=== PATIENT | female | born 1980 | race Caucasian/White ===

== ENCOUNTER → 2016-06-06 | Outpatient (CLI) | payer OTHER ==
[~2016-06-06] VITALS: Ht 156.2 cm; Wt 84.4 kg
[~2016-06-06] MED LIST: ADIPEX-P37.5 M1 PO; ANIMAL CHEWS1 EACH PO; BUPROPION XL300 MG PO; DOCUSATE SODIU100 MG PO; FLORINEF ACETA0.1 MG PO; GUMMY SWIRLS1 EACH PO; MILK OF MAGN PO; PROZAC10 MG PO; ULTRAM50 MG PO; VITAMIN D32000 UNI1 PO
== END | disposition home or self-care (01) ==
LOC: AMB 05-26 14:00
PROC: 0DBK8ZX Excision of Ascending Colon, Via Natural or Artificial Opening Endoscopic, Diagnostic (ICD-10-PCS; principal; 2016-06-06)
DX: D12.2 Benign neoplasm of ascending colon (principal); K64.8 Other hemorrhoids; R10.9 Unspecified abdominal pain; K62.89 Other specified diseases of anus and rectum; K62.5 Hemorrhage of anus and rectum; Z86.69 Personal history of other diseases of the nervous system and sense organs; Z88.5 Allergy status to narcotic agent; Z87.891 Personal history of nicotine dependence
CPT/HCPCS: 88305; J2250; J3010